=== PATIENT | female | born 1950 | race Caucasian/White ===

== ENCOUNTER → 2020-04-08 | Outpatient (CLI) | payer OTHER ==
--- NOTE | 2020-04-08 17:06 | RAD ---
EXAM DESCRIPTION: Pelvis (accession [id number]), Knee,Right Complete (accession [id number]) CLINICAL HISTORY: 70 years, Female, PAIN IN RIGHT HIP COMPARISON: None TECHNIQUE: Four x-ray views of the right knee standing Single frontal x-ray view of the pelvis FINDINGS: Right knee No fracture or dislocation. Bones appear normally mineralized with normal trabecular pattern. Mildly narrowed appearance of medial compartment on frontal view. Lateral view shows normal position of the patella. Mild posterior superior patellar spurring. No no definite suprapatellar knee joint effusion. Normal contour of quadriceps and patellar tendons. 45 degree fraction view is obtained standing showing clear intracondylar notch. No abnormal patellar tilt or subluxation on patellar sunrise view. Mild spurring along the medial and lateral aspects of the patella. Pelvis Single x-ray view of the pelvis shows degenerative narrowing of the SI joints. Degenerative facet disease in the lower L-spine. Sacrum appears intact. Intact bones of the pelvic ring. Mild degenerative narrowing of the right hip more than left. Vascular calcifications are present. No fracture or dislocation. IMPRESSION: Degenerative changes of the right knee. Negative for fracture or dislocation of the pelvis or hips. Electronically signed by: Guzman Natarajan MD 04/08/2020 5:05 PM [facility]
--- NOTE | 2020-04-08 17:07 | RAD ---
EXAM DESCRIPTION: Pelvis (accession [id number]), Knee,Right Complete (accession [id number]) CLINICAL HISTORY: 70 years, Female, PAIN IN RIGHT HIP COMPARISON: None TECHNIQUE: Four x-ray views of the right knee standing Single frontal x-ray view of the pelvis FINDINGS: Right knee No fracture or dislocation. Bones appear normally mineralized with normal trabecular pattern. Mildly narrowed appearance of medial compartment on frontal view. Lateral view shows normal position of the patella. Mild posterior superior patellar spurring. No no definite suprapatellar knee joint effusion. Normal contour of quadriceps and patellar tendons. 45 degree fraction view is obtained standing showing clear intracondylar notch. No abnormal patellar tilt or subluxation on patellar sunrise view. Mild spurring along the medial and lateral aspects of the patella. Pelvis Single x-ray view of the pelvis shows degenerative narrowing of the SI joints. Degenerative facet disease in the lower L-spine. Sacrum appears intact. Intact bones of the pelvic ring. Mild degenerative narrowing of the right hip more than left. Vascular calcifications are present. No fracture or dislocation. IMPRESSION: Degenerative changes of the right knee. Negative for fracture or dislocation of the pelvis or hips. Electronically signed by: Guzman Natarajan MD 04/08/2020 5:05 PM [facility]
== END ==
LOC: RAD 07:57
PROVIDERS: ATTEND Orthopaedic Surgery
DX: M17.11 Unilateral primary osteoarthritis, right knee (principal); M25.551 Pain in right hip